=== PATIENT | female | born 1945 | race American Indian/Alaskan Native ===

== ENCOUNTER 2018-08-29 12:58 | Emergency (ER) | payer OTHER ==
[2018-08-29 13:01] VITALS: BMI 30.7
[2018-08-29 13:34] VITALS: TEMP 97.9
--- NOTE | 2018-08-29 13:47 | ED PDOC ---
Arrival/HPI - General Chief Complaint: Chest Pain Time Seen by Provider: 08/29/18 13:12 Historian: Patient - History of Present Illness Narrative History of Present Illness (Text): 08/29/18 13:37 73 year old female, with past medical history of CAD with stent placementx2 (2013, 2015), Hypertension, and Headache secondary to Degenerative Disc Disease, presents to the Emergency department complaining of left sided chest pain in termittantly for last 1- 2 weeks Patient reports intermittent chest pain usually brought on by exertion and resolves spontaneously with time. Patient describes the pain as pressure to left side, experienced while walking to [employer] this morning, prompting her to contact pmd who sent pt to er for eval. Currently, patient reports resolved symptoms. Patient denies any other associated complaints. Patient denies any fevers, chills, headache, dizziness, chest pain, shortness of breath, dyspnea on exertion, cough, abdominal pain, nausea, vomiting, diarrhea, back pain, neck pain, or any other complaints. Sorter/Assay Tech: Dr. Francisco Thakkar 08/29/18 16:58 Time/Duration: Prior to Arrival Symptom Onset: Gradual Symptom Course: Resolved Quality: Pressure Activities at Onset: Light Context: Home Past Medical History - Provider Review Nursing Documentation Reviewed: Yes - Infectious Disease Hx of Infectious Diseases: None - Tetanus Immunization Tetanus Immunization: Up to Date - Cardiac Hx Atrial Fibrillation: (palpitations) Hx Hypertension: Yes Hx Pacemaker: No - Pulmonary Hx Asthma: Yes - Neurological Hx Neurological Disorder: No - HEENT Hx HEENT Disorder: No - Renal Hx Renal Disorder: No - Endocrine/Metabolic Hx Endocrine Disorders: No - Hematological/Oncological Hx Blood Disorders: No - Integumentary Hx Dermatological Disorder: No Other/Comment: pt was bit by bedbug 2 weeks ago broke out in hives as per pt, now healed - Musculoskeletal/Rheumatological Hx Musculoskeletal Disorders: Yes Hx Falls: Yes (2014 tripped over 2 steps outside 's office) - Gastrointestinal Hx Gastrointestinal Disorders: No - Genitourinary/Gynecological Hx Genitourinary Disorders: No - Psychiatric Hx Depression: No Hx Substance Use: No - Surgical History Hx Coronary Stent: Yes (ptca 08/05/2014) - Anesthesia Hx Anesthesia Reactions: No Hx Malignant Hyperthermia: No - Suicidal Assessment Feels Threatened In Home Enviroment: No Family/Social History - Physician Review Nursing Documentation Reviewed: Yes Family/Social History: Unknown Family HX Smoking Status: Never Smoked Hx Alcohol Use: No Hx Substance Use: No Hx Substance Use Treatment: No Allergies/Home Meds Allergies/Adverse Reactions: Allergies No Known Allergies Allergy (Verified 05/12/18 14:34) Home Medications: Home Meds Medication Instructions Recorded Confirmed RX: Aspirin [Aspirin Chewable] 81 mg PO DAILY 08/10/13 08/29/18 RX: Acetaminophen [Tylenol Extra 500 mg PO DAILY 10/25/15 08/29/18 Strength] RX: Atorvastatin [Lipitor] 10 mg PO DIN 10/25/15 08/29/18 RX: Mv,Ca,Min/Iron/FA/Guarana/Caff 1 tab PO DAILY 10/25/15 08/29/18 [One-A-Day Women's Tablet] Losartan [Cozaar] 25 mg PO DAILY 05/12/18 08/29/18 Review of Systems - Physician Review All systems were reviewed & negative as marked: Yes - Review of Systems Constitutional: absent: Fevers Respiratory: absent: SOB, Cough Cardiovascular: Chest Pain Gastrointestinal: absent: Abdominal Pain, Diarrhea, Nausea, Vomiting Genitourinary Female: absent: Dysuria, Urine Output Changes Musculoskeletal: absent: Back Pain, Neck Pain Neurological: absent: Headache, Dizziness Physical Exam Vital Signs Reviewed: Yes Vital Signs Temp Pulse Resp BP Pulse Ox 08/29/18 12:59 97.9 F 70 16 156/77 H 99 Temperature: Afebrile Blood Pressure: Normal Pulse: Regular Respiratory Rate: Normal Appearance: Positive for: Well-Appearing, Non-Toxic, Comfortable Pain Distress: None Mental Status: Positive for: Alert and Oriented X 3 - Systems Exam Head: Present: Atraumatic, Normocephalic Pupils: Present: PERRL Extroacular Muscles: Present: EOMI Conjunctiva: Present: Normal Respiratory/Chest: Present: Clear to Auscultation, Good Air Exchange. No: Respiratory Distress, Accessory Muscle Use Cardiovascular: Present: Regular Rate and Rhythm, Normal S1, S2. No: Murmurs Abdomen: No: Tenderness, Distention, Peritoneal Signs Back: Present: Normal Inspection Upper Extremity: Present: Normal Inspection. No: Cyanosis, Edema Lower Extremity: Present: Normal Inspection. No: Edema Neurological: Present: GCS=15, CN II-XII Intact, Speech Normal Skin: Present: Warm, Dry, Normal Color. No: Rashes Psychiatric: Present: Alert, Oriented x 3, Normal Insight, Normal Concentration Medical Decision Making ED Course and Treatment: 08/29/18 13:34 Impression: 73 year old female presents to the ED for evaluation of a resolved episode of chest pain. ho of cad. typical symptoms labs penidng Plan: -- EKG -- Labs -- Chest X-ray -- Urinalysis -- Reassess and disposition Prior Visits: Notes and results from previous visits were reviewed. Progress Notes: EKG: Ordered, reviewed, and independently interpreted the EKG. Rate : 71 BPM Rhythm : NSR Interpretation : RBBB. No interval changes from previous. 08/29/18 15:20 Chest X-ray reviewed by radiologist, shows no active disease. 08/29/18 16:58 typical symptoms accepted by dr del real covering medical service. 08/29/18 16:59 - RAD Interpretation Radiology Orders: 08/29/18 13:35 CHEST PORTABLE [RAD] Stat - EKG Interpretation Interpreted by ED Physician: Yes Type: 12 lead EKG - Scribe Statement The provider has reviewed the documentation as recorded by the Scribe Jerel Coronel. All medical record entries made by the Scribe were at my direction and personally dictated by me. I have reviewed the chart and agree that the record accurately reflects my personal performance of the history, physical exam, medical decision making, and the department course for this patient. I have also personally directed, reviewed, and agree with the discharge instructions and disposition. Disposition/Present on Arrival - Present on Arrival Any Indicators Present on Arrival: No History of DVT/PE: No History of Uncontrolled Diabetes: No Urinary Catheter: No History of Decub. Ulcer: No History Surgical Site Infection Following: None - Disposition Have Diagnosis and Disposition been Completed?: Yes Diagnosis: Chest pain Disposition: HOSPITALIZED Disposition Time: 15:00 Condition: STABLE
[2018-08-29 14:07] LABS: BASO # 0.02 K/mm3 (0.0-2.0); BASO % 0.4 % (0.0-3.0); EOS # 0.1 (0.0-0.7); EOS % 1.4 % (1.5-5.0); GRAN # 2.17 (1.4-6.5); GRAN % 44.4 % (50.0-68.0); HEMOGLOBIN 10.7 g/dL (12.0-16.0); LYMPH # 2.1 (1.2-3.4); LYMPH % 43.4 % (22.0-35.0); MEAN CELL VOLUME 81.5 fl (80.0-105.0); MEAN CORPUSCULAR HEMOGLOBIN 27.5 pg (25.0-35.0); MEAN CORPUSCULAR HGB CONC 33.8 g/dl (31.0-37.0); MEAN PLATELET VOLUME 9.2 fl (7.0-11.0); MONO # 0.5 (0.1-0.6); MONO % 10.4 % (1.0-6.0); RBC 3.89 10^6/uL (3.5-6.1); RED CELL DISTRIBUTION WIDTH 13.7 % (11.5-14.5); WHITE BLOOD COUNT 4.9 10^3/uL (4.5-11.0)
[2018-08-29 14:10] LABS: URINE BILIRUBIN NEGATIVE (NEGATIVE); URINE BLOOD SMALL (NEGATIVE); URINE GLUCOSE (UA) NEGATIVE (NEGATIVE); URINE LEUKOCYTE ESTERASE SMALL Leu/uL (NEGATIVE); URINE PROTEIN NEGATIVE mg/dL (<30 mg/dL); URINE UROBILINOGEN 0.2 E.U./dL (<1 E.U./dL)
[2018-08-29 14:13] LABS: URINE APPEARANCE CLEAR (CLEAR); URINE COLOR YELLOW (YELLOW)
[2018-08-29 14:16] LABS: INR 1.04; PARTIAL THROMBOPLASTIN TIME 30.3 Seconds (25.1-36.5); PROTHROMBIN TIME 11.9 SECONDS (9.4-12.5)
[2018-08-29 14:18] LABS: ALB/GLOB RATIO 1.1 (1.1-1.8); ALBUMIN 3.8 g/dL (3.0-4.8); BLOOD UREA NITROGEN 15 mg/dL (7-21); CALCIUM 9.3 mg/dL (8.4-10.5); GFR NON-AFRICAN AMERICAN > 60
[2018-08-29 14:26] LABS: URINE BACTERIA FEW (NEG); URINE EPITHELIAL CELLS 0 - 2 /hpf (0-5); URINE RBC 0 - 2 /hpf (0-2); URINE WBC 15 - 20 /hpf (0-6)
--- NOTE | 2018-08-29 14:44 | RAD ---
Date of service: 08/29/2018 HISTORY: cp COMPARISON: 09/25/2016 FINDINGS: LUNGS: No active pulmonary disease. PLEURA: No significant pleural effusion identified, no pneumothorax apparent. CARDIOVASCULAR: No aortic atherosclerotic calcification present. Normal cardiac size. No pulmonary vascular congestion. OSSEOUS STRUCTURES: No significant abnormalities. VISUALIZED UPPER ABDOMEN: Normal. OTHER FINDINGS: None. IMPRESSION: No active disease.
[2018-08-29 14:46] LABS: ALT/SGPT 31 U/L (7-56); AST/SGOT 30 U/L (14-36)
[2018-08-29 14:47] LABS: TROPONIN I 0.01 ng/mL
[2018-08-29 15:29] VITALS: PULSE 60
--- NOTE | 2018-08-29 16:13 | CP.PCM.HP ---
History of Present Illness - History of Present Illness History of Present Illness: Júnior Hartman PGY2 - History and Physical for Dr. Aleman's Service CC: Back pain, Chest pain HPI: 73 year old female with past medical history of CAD s/p stent left circumflex with Dr. Thakkar and HTN who presented to [facility] ED complaining of 3-4 day history of increased fatigue and 8 hour history of chest pressure/discomfort with walking. Patient reports that over the Past Patient History - Infectious Disease Hx of Infectious Diseases: None - Tetanus Immunizations Tetanus Immunization: Up to Date - Past Medical History & Family History Past Medical History?: Yes - Past Social History Smoking Status: Never Smoked - CARDIAC Hx Atrial Fibrillation: (palpitations) Hx Hypertension: Yes Hx Pacemaker: No - PULMONARY Hx Asthma: Yes - NEUROLOGICAL Hx Neurological Disorder: No - HEENT Hx HEENT Problems: No - RENAL Hx Chronic Kidney Disease: No - ENDOCRINE/METABOLIC Hx Endocrine Disorders: No - HEMATOLOGICAL/ONCOLOGICAL Hx Blood Disorders: No - INTEGUMENTARY Hx Dermatological Problems: No Other/Comment: pt was bit by bedbug 2 weeks ago broke out in hives as per pt, now healed - MUSCULOSKELETAL/RHEUMATOLOGICAL Hx Musculoskeletal Disorders: Yes Hx Falls: Yes (2015 tripped [address] office) - GASTROINTESTINAL Hx Gastrointestinal Disorders: No - GENITOURINARY/GYNECOLOGICAL Hx Genitourinary Disorders: No - PSYCHIATRIC Hx Depression: No Hx Substance Use: No - SURGICAL HISTORY Hx Coronary Stent: Yes (ptca 08/05/2014) - ANESTHESIA Hx Anesthesia Reactions: No Hx Malignant Hyperthermia: No Meds Allergies/Adverse Reactions: Allergies Allergy/AdvReac Type Severity Reaction Status Date / Time No Known Allergies Allergy Verified 05/12/18 14:34 Results - Vital Signs Recent Vital Signs: Last Vital Signs Temp 97.9 F 08/29/18 13:15 Pulse 60 08/29/18 15:28 Resp 18 08/29/18 15:28 BP 152/80 H 08/29/18 15:28 Pulse Ox 97 08/29/18 15:28 - Labs Result Diagrams: 08/29/18 13:50 08/29/18 13:50 Labs: Laboratory Results - last 24 hr 08/29/18 08/29/18 08/29/18 13:50 13:50 13:50 WBC 4.9 RBC 3.89 Hgb 10.7 L Hct 31.7 L MCV 81.5 MCH 27.5 MCHC 33.8 RDW 13.7 Plt Count 309 MPV 9.2 Gran % 44.4 L Lymph % (Auto) 43.4 H Harmon % (Auto) 10.4 H Eos % (Auto) 1.4 L Baso % (Auto) 0.4 Gran # 2.17 Lymph # (Auto) 2.1 Harmon # (Auto) 0.5 Eos # (Auto) 0.1 Baso # (Auto) 0.02 PT 11.9 INR 1.04 APTT 30.3 Sodium 139 Potassium 4.1 Chloride 106 Carbon Dioxide 27 Anion Gap 10 BUN 15 Creatinine 0.7 Est GFR ( Amer) > 60 Est GFR (Non-Af Amer) > 60 Random Glucose 86 Calcium 9.3 Magnesium 2.0 Total Bilirubin 0.3 AST 30 ALT 31 Alkaline Phosphatase 75 Lactate Dehydrogenase 592 Total Creatine Kinase 294 H CK-MB (CK-2) 3.0 CK-MB (CK-2) % Cancelled Troponin I 0.01 Total Protein 7.2 Albumin 3.8 Globulin 3.4 Albumin/Globulin Ratio 1.1 Urine Color Urine Appearance Urine pH Ur Specific Warren Urine Protein Urine Glucose (UA) Urine Ketones Urine Blood Urine Nitrate Urine Bilirubin Urine Urobilinogen Ur Leukocyte Esterase Urine RBC Urine WBC Ur Epithelial Cells Urine Bacteria 08/29/18 14:00 WBC RBC Hgb Hct MCV MCH MCHC RDW Plt Count MPV Gran % Lymph % (Auto) Harmon % (Auto) Eos % (Auto) Baso % (Auto) Gran # Lymph # (Auto) Harmon # (Auto) Eos # (Auto) Baso # (Auto) PT INR APTT Sodium Potassium Chloride Carbon Dioxide Anion Gap BUN Creatinine Est GFR ( Amer) Est GFR (Non-Af Amer) Random Glucose Calcium Magnesium Total Bilirubin AST ALT Alkaline Phosphatase Lactate Dehydrogenase Total Creatine Kinase CK-MB (CK-2) CK-MB (CK-2) % Troponin I Total Protein Albumin Globulin Albumin/Globulin Ratio Urine Color Yellow Urine Appearance Clear Urine pH 7.0 Ur Specific Warren 1.010 Urine Protein Negative Urine Glucose (UA) Negative Urine Ketones Negative Urine Blood Small H Urine Nitrate Negative Urine Bilirubin Negative Urine Urobilinogen 0.2 Ur Leukocyte Esterase Small H Urine RBC 0 - 2 Urine WBC 15 - 20 Ur Epithelial Cells 0 - 2 Urine Bacteria Few
[2018-08-29 17:21] VITALS: BP 147/72; RESP 16; O2SAT 99
--- NOTE | 2018-08-29 19:04 | CP.PCM.PCO ---
Against Medical Advice - AMA Patient Left Against Medical Advice: The patient declines admission to the hospital and wishes to leave the Emergency Department. This action is against my medical advice. This decision was made with informed refusal. The patient was told that admission to the hospital is necessary. Explanation of the reasons why were discussed. The risks of leaving were explained to the patient and include, but are not limited to, worsening of known or currently unknown conditions, permanent disability, loss of limb, paralysis, stroke, heart attack and from undiagnosed or untreated conditions. The patient has the capacity to make this informed decision and understands my explanation of the current medical problem and risks of leaving. The patient voluntarily accepts these risks and signed an AMA form documenting our conversation. The patient was given the opportunity to ask questions and reconsider. The patient was encouraged to return to the Emergency Department at any time for further care.
--- NOTE | 2018-08-29 20:22 | CARD ---
APPROVED REPORT Date of service: 08/29/2018 EKG Measurement Heart [id number] <Conclusion> Normal sinus rhythm Possible Left atrial enlargement Right bundle branch block Left anterior fascicular block Bifascicular block Abnormal ECG
== END 2018-08-29 17:06 | disposition left against medical advice (07) ==
LOC: ED 12:58 → UNDOADMOB 15:15 → ERH 15:15
DX: R07.9 Chest pain, unspecified (principal); I10 Essential (primary) hypertension; I25.10 Atherosclerotic heart disease of native coronary artery without angina pectoris

== ENCOUNTER 2018-09-16 06:08 | Day surgery (SDC) | payer OTHER ==
[2018-09-15 08:30] VITALS: BMI 30.7
[2018-09-16 07:06] LABS: BASO # 0.01 K/mm3 (0.0-2.0); BASO % 0.2 % (0.0-3.0); EOS # 0.1 (0.0-0.7); EOS % 1.8 % (1.5-5.0); GRAN # 2.37 (1.4-6.5); GRAN % 46.7 % (50.0-68.0); HEMOGLOBIN 11.2 g/dL (12.0-16.0); LYMPH # 2.1 (1.2-3.4); LYMPH % 42.2 % (22.0-35.0); MEAN CELL VOLUME 81.4 fl (80.0-105.0); MEAN CORPUSCULAR HEMOGLOBIN 27.5 pg (25.0-35.0); MEAN CORPUSCULAR HGB CONC 33.7 g/dl (31.0-37.0); MEAN PLATELET VOLUME 8.8 fl (7.0-11.0); MONO # 0.5 (0.1-0.6); MONO % 9.1 % (1.0-6.0); RBC 4.08 10^6/uL (3.5-6.1); WHITE BLOOD COUNT 5.1 10^3/uL (4.5-11.0)
[2018-09-16 07:11] LABS: INR 0.97; PROTHROMBIN TIME 11.1 SECONDS (9.4-12.5)
[2018-09-16] MEDS ORDERED: Lidocaine 2% Inj (20ml) ONE (07:31)
[2018-09-16 07:36] LABS: BLOOD UREA NITROGEN 16 mg/dL (7-21); CALCIUM 9.3 mg/dL (8.4-10.5); GFR NON-AFRICAN AMERICAN > 60
[2018-09-16] MEDS ORDERED: Midazolam 2 MG/2 ML VIAL ONE ×2 (08:22→08:29)
[2018-09-16] MEDS ORDERED: Iodixanol 320 MG/ML 100 ML BOTTLE IV ONE (08:23)
[2018-09-16] MEDS ORDERED: Iodixanol 320 MG/ML 200 ML BOTTLE IV ONE (08:23)
[2018-09-16] MEDS ORDERED: Iohexol 350mgl/ml 50 ML ONE (08:23)
[2018-09-16] MEDS ORDERED: Sodium Chloride 0.9% 1,000 ML IV SCH (09:00)
[2018-09-16 09:08] VITALS: RESP 16; TEMP 97.7
--- NOTE | 2018-09-16 09:34 | CARD ---
APPROVED REPORT Date of service: 09/16/2018 EKG Measurement Heart [id number] <Conclusion> Normal sinus rhythm Left axis deviation/LAHB Right bundle branch block NSSTW changes
[2018-09-16 11:03] VITALS: O2SAT 99
[2018-09-16 14:49] VITALS: BP 121/63; PULSE 66
--- NOTE | 2018-09-29 14:01 | CARDCATH ---
PROCEDURE DATE: 09/16/2018 HISTORY: The patient is a 73-year-old woman with history of hypertension and overweight who presents with an abnormal stress test which was requested by the patient. The patient underwent a PTCA and stent of the circumflex artery in the past. Because of this, cardiac catheterization was recommended. PROCEDURE: Left heart catheterization with coronary arteriography and left ventriculogram. I performed moderate sedation which included the presence of an independent trained observer that assisted in monitoring the patient's level of consciousness and physiologic status. After administration of Versed and fentanyl, my intra service time was 30 minutes. The findings on catheterization revealed a left ventricle that contracted normally. Estimated ejection fraction is 70-75%. There is no mitral regurgitation. Her coronary arteries revealed a codominant circulation. The RCA revealed intimal irregularities without critical lesions. The left main artery was unremarkable. The LAD and diagonal vessels revealed intimal irregularities without critical lesions. The circumflex artery revealed a patent stent in the proximal portion. Angio-Seal was used to close the femoral artery site. The patient tolerated the procedure well. In summary, the procedure revealed single-vessel CAD of the circumflex artery with a patent stent in its proximal portion. The rest of the coronary artery revealed diffuse atherosclerosis without critical lesions. LV function is normal. Given these findings, the patient's treatment will be continue a cardiac risk reduction program. Francisco Thakkar MD
== END 2018-09-16 15:20 | disposition home or self-care (01) ==
LOC: CATH 06:08
PROVIDERS: ATTEND Internal Medicine Cardiovascular Disease
DX: I25.10 Atherosclerotic heart disease of native coronary artery without angina pectoris (principal); I10 Essential (primary) hypertension; I45.10 Unspecified right bundle-branch block; E66.3 Overweight; Z68.30 Body mass index [BMI] 30.0-30.9, adult; Z95.5 Presence of coronary angioplasty implant and graft
CPT/HCPCS: 36415; 80048; 85025; 85610; 85730; 86850; 86900; 93005; 93458; 93567; 99152; 99153; C1760; C1769; C2629; J1644; J2250; J3010; J7030; J7040; Q9966